=== PATIENT | male | born 1975 | race Caucasian/White ===

== ENCOUNTER 2020-11-21 11:31 | Inpatient (IN) | payer BC ==
[~2020-11-21] VITALS: Ht 182.9 cm; Wt 108.7 kg
[2020-11-21 14:23] LABS: CHLORIDE 98 mEq/L (98-107)
[2020-11-21 14:27] LABS: HEMATOCRIT. 39.6 % (42.0-52.0); HEMOGLOBIN. 13.9 g/dL (14.0-18.0); MEAN CORPUSCULAR HEMOGLOBIN 30.4 pg (28.0-32.0); MEAN CORPUSCULAR VOLUME 86.5 fL (80.0-94.0); MEAN PLATELET VOLUME 7.6 fl (7.4-10.4); PLATELET 269 x1000/uL (130-400); RED BLOOD CELL COUNT 4.58 mill/uL (4.7-6.1); RED CELL DISTRIBUTION WIDTH 13.7 % (11.6-14.6)
[2020-11-21] MEDS ORDERED: CEFTRIAXONE 1 G PREMIX 50 ML IV NR (16:45)
[2020-11-21] MEDS ORDERED: AZITHROMYCIN 500 MG in DEXT 5% WATER 250 ML IV NR (16:45)
[2020-11-21] MEDS ORDERED: DEXAMETHASONE 10 MG/ML VIAL IV NR (17:00)
[2020-11-21 17:54] LABS: PLATELET ESTIMATE NORMAL
[2020-11-21 18:27] LABS: BG BASE EXCESS 1.6 mmol/L (-2.0-2.0); BG CARBOXYHEMOGLOBIN 0.8 % (0.5-1.5); BG DEOXYHEMOGLOBIN 7.5 % (0.0-5.0); BG FRACTION INSPIRED OXYGEN 44; BG HCO3 ACT 24.6 mmol/L (22.0-26.0); BG METHEMOGLOBIN 0.2 % (0.0-1.5); BG OXYGEN SATURATION 92.4 % (92.0-98.5); BG OXYHEMOGLOBIN 91.5 % (94.0-97.0); BG PH 7.477 (7.350-7.450); BG PO2 60.9 mmHg (75.0-100.0); BG SAMPLE SITE RIGHT RADIAL; BG TOTAL HEMOGLOBIN 14.9 g/dL (12.0-18.0); BG VENT MODE NASAL CANNULA
[2020-11-21 23:30] VITALS: BP 119/78
[2020-11-21] MEDS ORDERED: ONDANSETRON HCL 4MG/2ML INJ IV PRN (23:45)
[2020-11-21] MEDS ORDERED: DIPHENHYDRAMINE 50MG/ML VIAL IV PRN (23:45)
[2020-11-21] MEDS ORDERED: ALBUTEROL 6.7GM HFA INHALER ORI PRN (23:45)
[2020-11-21] MEDS ORDERED: GUAIFENESIN 200MG/10ML SUGAR FREE UDC PO PRN (23:45)
[2020-11-21] MEDS ORDERED: ACETAMINOPHEN 325MG TABLET PO PRN ×2 (23:45)
[2020-11-21] MEDS ORDERED: MAGNESIUM/ALUMINUM HYDROXIDE/SIMETHICONE 30ML UDC PO PRN (23:45)
[2020-11-22] VITALS: BP 120/82
[2020-11-22] MEDS: ZOLPIDEM TARTRATE 5MG TABLET PO PRN ×2 (01:48→23:14)
[2020-11-22] MEDS: LEVOFLOXACIN 500MG PREMIX 100 ML IV SCH ×2 (01:48→21:20)
[2020-11-22] MEDS ORDERED: *PATIENT'S OWN MEDICATION STORAGE XX SCH (02:00)
[2020-11-22 04:00] VITALS: BP 125/73
[2020-11-22] MEDS: SODIUM CHLORIDE 0.9% INJ 3ML FLUSH IVF SCH ×3 (06:30→21:08)
[2020-11-22 08:00] VITALS: BP 126/80
[2020-11-22] MEDS: GUAIFENESIN 600MG ER TABLET PO SCH ×2 (09:24→21:08)
[2020-11-22] MEDS ORDERED: PNEUMOCOCCAL 23-VAL P-SAC VAC 0.5 ML IM ONE (10:00)
[2020-11-22 12:00] VITALS: BP 128/77
[2020-11-22] MEDS ORDERED: ERGOCALCIFEROL 50000UNITS CAPSULE PO SCH (14:45)
[2020-11-22] MEDS ORDERED: IPRATROPIUM/ALBUTEROL 0.5-3(2.5)MG/3ML NEB HHN PRN (14:45)
[2020-11-22 16:00] VITALS: BP 125/64
[2020-11-22] MEDS: IPRATROPIUM/ALBUTEROL 0.5-3(2.5)MG/3ML NEB HHN SCH ×2 (17:10→21:25)
[2020-11-22 20:00] VITALS: BP 132/81
[2020-11-22] MEDS: METHYLPREDNISOLONE SOD SUCC 125 MG/2 ML VIAL IV SCH (21:11)
[2020-11-23] VITALS: BP 142/87
[2020-11-23 04:00] VITALS: BP 130/87
[2020-11-23] MEDS: IPRATROPIUM/ALBUTEROL 0.5-3(2.5)MG/3ML NEB HHN SCH ×4 (04:03→20:36)
[2020-11-23] MEDS: SODIUM CHLORIDE 0.9% INJ 3ML FLUSH IVF SCH ×3 (07:09→21:49)
[2020-11-23] MEDS: METHYLPREDNISOLONE SOD SUCC 125 MG/2 ML VIAL IV SCH ×3 (07:10→21:47)
[2020-11-23 08:00] VITALS: BP 139/73
[2020-11-23] MEDS: GUAIFENESIN 600MG ER TABLET PO SCH ×2 (08:45→21:47)
[2020-11-23 12:00] VITALS: BP 133/87
[2020-11-23] MEDS ORDERED: IOHEXOL-300 100 ML BOTTLE ONE (12:08)
[2020-11-23 16:00] VITALS: BP 128/71
[2020-11-23 20:00] VITALS: BP 146/85
[2020-11-23] MEDS: LEVOFLOXACIN 500MG PREMIX 100 ML IV SCH (21:48)
[2020-11-24] VITALS: BP 127/80
[2020-11-24] MEDS: IPRATROPIUM/ALBUTEROL 0.5-3(2.5)MG/3ML NEB HHN SCH ×3 (01:28→20:00)
[2020-11-24 04:00] VITALS: BP 133/76
[2020-11-24] MEDS: METHYLPREDNISOLONE SOD SUCC 125 MG/2 ML VIAL IV SCH ×3 (05:51→22:01)
[2020-11-24] MEDS: SODIUM CHLORIDE 0.9% INJ 3ML FLUSH IVF SCH ×3 (05:52→22:02)
[2020-11-24 08:00] VITALS: BP 128/74
[2020-11-24] MEDS: GUAIFENESIN 600MG ER TABLET PO SCH ×2 (08:17→20:31)
[2020-11-24 11:45] LABS: HEMATOCRIT. 41.9 % (42.0-52.0); HEMOGLOBIN. 14.5 g/dL (14.0-18.0); MEAN CORPUSCULAR HEMOGLOBIN 30.8 pg (28.0-32.0); MEAN CORPUSCULAR VOLUME 89.1 fL (80.0-94.0); PLATELET 452 x1000/uL (130-400); RED BLOOD CELL COUNT 4.71 mill/uL (4.7-6.1); RED CELL DISTRIBUTION WIDTH 13.5 % (11.6-14.6)
[2020-11-24 11:48] LABS: CHLORIDE 102 mEq/L (98-107)
[2020-11-24 12:00] VITALS: BP 124/72
[2020-11-24 12:08] LABS: BG SAMPLE SITE RIGHT RADIAL
[2020-11-24 13:28] LABS: BG FRACTION INSPIRED OXYGEN 32
[2020-11-24 13:29] LABS: BG PCO2 28.9 mmHg (35.0-45.0)
[2020-11-24 13:30] LABS: BG HCO3 ACT 21.3 mmol/L (22.0-26.0); BG PO2 91.9 mmHg (75.0-100.0)
[2020-11-24 13:31] LABS: BG BASE EXCESS -0.8 mmol/L (-2.0-2.0)
[2020-11-24 13:32] LABS: BG OXYGEN SATURATION 97.3 % (92.0-98.5); BG TOTAL HEMOGLOBIN 15.4 g/dL (12.0-18.0)
[2020-11-24 13:33] LABS: BG OXYHEMOGLOBIN 96.5 % (94.0-97.0)
[2020-11-24 13:34] LABS: BG CARBOXYHEMOGLOBIN 0.5 % (0.5-1.5); BG METHEMOGLOBIN 0.3 % (0.0-1.5)
[2020-11-24 13:35] LABS: BG DEOXYHEMOGLOBIN 2.7 % (0.0-5.0)
[2020-11-24 13:36] LABS: BG PH 7.485 (7.350-7.450)
[2020-11-24 13:39] LABS: BG VENT MODE NASAL CANNULA
[2020-11-24 16:00] VITALS: BP 123/85
[2020-11-24 20:00] VITALS: BP 135/71
[2020-11-24] MEDS: LEVOFLOXACIN 500MG PREMIX 100 ML IV SCH (20:31)
[2020-11-24 22:59] LABS: PLATELET ESTIMATE INCREASED
[2020-11-25] VITALS: BP 129/72
[2020-11-25] MEDS: IPRATROPIUM/ALBUTEROL 0.5-3(2.5)MG/3ML NEB HHN SCH ×3 (02:00→12:05)
[2020-11-25 04:00] VITALS: BP 131/71
[2020-11-25] MEDS: SODIUM CHLORIDE 0.9% INJ 3ML FLUSH IVF SCH (06:37)
[2020-11-25] MEDS: METHYLPREDNISOLONE SOD SUCC 125 MG/2 ML VIAL IV SCH (06:37)
[2020-11-25] MEDS: GUAIFENESIN 600MG ER TABLET PO SCH (08:53)
[2020-11-25 14:19] VITALS: BP 144/92
== END 2020-11-25 14:50 | disposition home or self-care (01) | DRG 193 ==
LOC: ER 11:31 → MICUSO 17:59 → EDBEDREQ 18:07 → 7EST 22:09
PROVIDERS: ADMIT Internal Medicine; ATTEND Internal Medicine
DX: J18.9 Pneumonia, unspecified organism (principal); J96.01 Acute respiratory failure with hypoxia; E44.1 Mild protein-calorie malnutrition; R65.10 Systemic inflammatory response syndrome (SIRS) of non-infectious origin without acute organ dysfunction; E66.9 Obesity, unspecified; K76.0 Fatty (change of) liver, not elsewhere classified; T38.0X5A Adverse effect of glucocorticoids and synthetic analogues, initial encounter; Z20.822 Contact with and (suspected) exposure to COVID-19; R07.89 Other chest pain; Y92.89 Other specified places as the place of occurrence of the external cause; Z68.32 Body mass index [BMI] 32.0-32.9, adult
CPT/HCPCS: 36415; 36600; 71045; 71260; 80048; 80053; 80076; 82375; 82728; 82805; 83605; 83880; 84484; 85025; 86140; 87426; 93005; 94640; 99285; J0456; J0696; J1100; J1956; J2930; J7040; J7060; Q9967